=== PATIENT | female | born 1985 | race Caucasian/White ===

== ENCOUNTER 2016-10-07 12:31 | Inpatient (IN) | payer MEDICAID ==
[~2016-10-07] VITALS: Ht 149.9 cm; Wt 60.9 kg
[~2016-10-07 12:31] MED LIST: PREN1TAB17 PO
[2016-10-28 14:09] VITALS: Ht 149.9 cm; Wt 60.9 kg
[2016-10-28] MEDS ORDERED: OXYTOCIN 30 UNITS/LR 500 ML IV SCH ×3 (14:30→15:30)
[2016-10-28] MEDS ORDERED: METHYLERGONOVINE 0.2 MG INJ IM PRN (14:30)
[2016-10-28] MEDS ORDERED: LIDOCAINE 1% (MPF) 30 ML INJ INJ PRN (14:30)
[2016-10-28] MEDS ORDERED: OXYTOCIN 30 UNITS/LR 500 ML IV PRN (14:30)
[2016-10-28] MEDS ORDERED: BUTORPHANOL 2 MG INJ IV PRN (14:30)
[2016-10-28] MEDS ORDERED: IBUPROFEN 600 MG TAB PO PRN (14:30)
[2016-10-28] MEDS ORDERED: CARBOPROST 250 MCG INJ IM PRN (14:30)
[2016-10-28] MEDS ORDERED: LACTATED RINGER'S 1,000 ML IV PRN (14:30)
[2016-10-28] MEDS ORDERED: MISOPROSTOL 200 MCG TAB PR PRN (14:30)
[2016-10-28] MEDS: LACTATED RINGER'S 1,000 ML IV SCH ×2 (14:35→22:12)
[2016-10-28 14:47] LABS: BASOPHILS % 0.4 % (0.0-2.0); EOSINOPHILS % 0.5 % (0.0-7.0); HEMATOCRIT 37.6 % (37.0-47.0); HEMOGLOBIN 12.8 g/dl (12.0-16.0); LYMPHOCYTES # 1.8 10^3/ul (0.8-2.9); LYMPHOCYTES % 21.3 % (15.0-51.0); MEAN CORPUSCULAR HEMOGLOBIN 30.6 pg (29.0-33.0); MEAN CORPUSCULAR HGB CONC 34.1 g/dl (32.0-37.0); MEAN CORPUSCULAR VOLUME 89.7 fl (82.0-101.0); MEAN PLATELET VOLUME 9.3 fl (7.4-10.4); MONOCYTE # 0.8 10^3/ul (0.3-0.9); MONOCYTES % 8.9 % (0.0-11.0); NEUTROPHILS % 68.9 % (39.0-77.0); PLATELET COUNT 252 10^3/UL (140-440); RED BLOOD COUNT 4.19 10^6/ul (4.20-5.40); RED CELL DISTRIBUTION WIDTH 13.7 % (11.5-14.5); UNCORRECTED WBC 8.7 10^3/ul (4.8-10.8); WHITE BLOOD COUNT 8.7 10^3/ul (4.8-10.8)
[2016-10-28 14:48] LABS: CONDITION 1; INR 0.91; PARTIAL THROMBOPLASTIN TIME 25.9 Sec (25.0-35.0); PROTIME 12.2 Sec (12.2-14.2)
[2016-10-28 15:00] VITALS: BP 123/82; PULSE 97; RESP 18
[2016-10-28] MEDS: DEXTROSE 5%-LR 1,000 ML IV SCH (16:44)
--- NOTE | 2016-10-28 17:23 | RADRPT ---
PROCEDURE: US OB biophysical profile. CLINICAL INDICATION: Intrauterine growth retardation TECHNIQUE: Multiple sonographic images of the pelvis were obtained. The images were reviewed on a PACS workstation. COMPARISON: No prior studies are available for comparison. FINDINGS: There is a single viable intrauterine gestation. Cardiac activity is present with 161 beats per min bianca. There is a vertex presentation. The placenta is posterior and fundal. There is no evidence of placental abruption. There is a normal amount of amniotic fluid with an SHADIA = 10.1 cm. Biophysical profile: movement 2/2 tone 2/2. breathing 2/2 SHADIA 2/2 Total 05/05 RPTAT: AA . IMPRESSION: Normal biophysical profile. Normal SHADIA. Physician Wang Date Time Electronically viewed and signed by Physician Wang on 10/28/2016 17:23 /
[2016-10-28] MEDS ORDERED: MINERAL OIL LIGHT 10 ML VIAL TOP ONE (19:00)
[2016-10-29] VITALS (7 sets, daily range): BP systolic 106–119; BP diastolic 64–82; PULSE 55–92; RESP 18–19
[2016-10-29] MEDS: DEXTROSE 5%-LR 1,000 ML IV SCH ×2 (00:12→09:39)
--- NOTE | 2016-10-29 18:27 | HP ---
Date/Time of Note Date/Time of Note DATE: 10/29/16 TIME: 18:24 OB - History Hx of Present Free Text/Dictation admitted for induction of the labor per perinatologist Last Menstrual Period: Jan 23, 2016 Estimated Due Date: Oct 29, 2016 : 2 Para: 1 Care: Good Care Ultrasounds: Normal mid trimester US Obstetrical Complications: Growth Restriction Medical Complications: None Past Family/Social History * Past Medical, Surgical, Family and Obstetric Histories reviewed from chart. Blood Type: A+ Rubella: immune RPR/VDRL: Negative GBS Status: Unknown HBsAG: Negative OB Admission Exam Vital Signs Vital Signs Vital Signs Date Time Temp Pulse Resp B/P Pulse Ox O2 Delivery O2 Flow Rate FiO2 10/29/16 11:49 76 10/28/16 15:00 98.0 18 123/82 Room Air Physical Exam HEENT: WNL Heart: Rhythm Normal Lungs: Clear, Equal Abdomen: WNL Extremities: Normal Reflexes: Normal Cervical Dilatation: 1cm Effacement: 50% Station: -3 Membranes: Intact Heart Rate: 140's Accelerations: Accelerations Present Decelerations: No Decelerations Varibility: Moderate Contractions on Admission: None Last 72 hours Lab Results CBC & BMP 10/28/16 14:25 OB Assessment/Plan Other Assessment: term gestation poor growth Induction Method: per Pitocin Protocol UBALDO HERNANDEZ MD Oct 29, 2016 18:27
--- NOTE | 2016-10-29 18:28 | PN ---
Date/Time of Note Date/Time of Note DATE: 10/29/16 TIME: 18:27 OB Subjective Subjective Subjective NO C/O UCs OB Objective Objective Objective Cx: %80 3cm -2 station OB Assessment/Plan Other Assessment: poor growth at term Induction Method: per Pitocin Protocol UBALDO HERNANDEZ MD Oct 29, 2016 18:28
[2016-10-30] MEDS ORDERED: DIPHENHYDRAMINE 25 MG CAP PO PRN
[2016-10-30] MEDS ORDERED: METHYLERGONOVINE 0.2 MG TAB PO PRN
[2016-10-30] MEDS ORDERED: ACETAMINOPHEN 325 MG TAB PO PRN ×2
[2016-10-30] MEDS ORDERED: morphine 2 MG INJ IV PRN
[2016-10-30] MEDS ORDERED: ONDANSETRON 4 MG INJ IV PRN
[2016-10-30] MEDS ORDERED: METHYLERGONOVINE 0.2 MG INJ IM PRN
[2016-10-30] MEDS ORDERED: LANOLIN 7 GM TUBE TOP PRN
[2016-10-30] MEDS ORDERED: OXYTOCIN 30 UNITS/LR 500 ML IV PRN
[2016-10-30] MEDS ORDERED: CARBOPROST 250 MCG INJ IM PRN
[2016-10-30] MEDS ORDERED: MISOPROSTOL 200 MCG TAB PR PRN
[2016-10-30] MEDS ORDERED: ZOLPIDEM 5 MG TAB PO PRN
[2016-10-30] MEDS ORDERED: WITCH HAZEL/GLYCERIN PAD PR PRN
[2016-10-30] MEDS: SENNA/DOCUSATE NA (8.6MG/50MG) TAB PO SCH ×3 (00:18→21:29)
[2016-10-30] MEDS: LACTATED RINGER'S 1,000 ML IV* SCH ×2 (00:18→21:30)
[2016-10-30 03:45] VITALS: BP 101/66; PULSE 92; RESP 18
[2016-10-30] MEDS: IBUPROFEN 600 MG TAB PO SCH ×5 (05:49→23:25)
[2016-10-30 08:20] VITALS: BP 124/71; PULSE 73; RESP 20
[2016-10-30] MEDS: MULTIVIT/MIN/FOLATE/IRON/PREN TAB PO SCH (09:29)
--- NOTE | 2016-10-30 09:55 | LDN ---
Date/Time of Note Date/Time of Note DATE: 10/30/16 TIME: 09:52 Delivery Summary of a viable infant Placenta Delivered: Spontaneously Meconium: none Perineum intact?: No Perineal laceration: 1 Perineal laceration repair: 1st degree perineal laceration was repaired with 2 0 Chromic Anesthesia type: Local Estimated blood loss: 300 Sponge & Needle done & correct: Yes All needle counts correct: Yes Any foreign bodies felt in the: No Problems: Infant Delivery Information Sex Sex: female Apgars 1 Minute: 7 5 Minute: 9 Suctioning Nose & mouth suctioned at mello: Yes Delee suction performed: No Umbilical Cord Umbilical cord with: 3 Vessels Cord Blood was obtained: Yes Mother & Baby Disposition Disposition Mom & Baby to Maternity; Good: Yes (mother and baby were recovered in good condition ) Mom transferred to: Other (maternity ) Baby to NICU: No UBALDO HERNANDEZ MD Oct 30, 2016 09:55
[2016-10-30] MEDS ORDERED: IBUP-1542 PO (09:57)
--- NOTE | 2016-10-30 09:57 | PD.PPDC ---
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
[2016-10-30 10:34] LABS: BASOPHILS % 0.4 % (0.0-2.0); EOSINOPHILS # 0.1 10^3/ul (0.0-0.5); EOSINOPHILS % 0.8 % (0.0-7.0); HEMATOCRIT 34.7 % (37.0-47.0); HEMOGLOBIN 11.8 g/dl (12.0-16.0); LYMPHOCYTES # 2.3 10^3/ul (0.8-2.9); LYMPHOCYTES % 17.4 % (15.0-51.0); MEAN PLATELET VOLUME 9.7 fl (7.4-10.4); MONOCYTE # 1.2 10^3/ul (0.3-0.9); MONOCYTES % 9.1 % (0.0-11.0); NEUTROPHIL # 9.4 10^3/ul (1.6-7.5); NEUTROPHILS % 72.3 % (39.0-77.0); PLATELET COUNT 231 10^3/UL (140-440); RED BLOOD COUNT 3.81 10^6/ul (4.20-5.40)
[2016-10-30 10:43] LABS: CONDITION 1
[2016-10-30 16:29] VITALS: BP 113/61; PULSE 69; RESP 20
[2016-10-30 19:30] VITALS: BP 111/62; PULSE 71; RESP 18
[2016-10-31 03:40] VITALS: BP 114/70; PULSE 72; RESP 19
[2016-10-31] MEDS: IBUPROFEN 600 MG TAB PO SCH ×3 (05:47→17:18)
[2016-10-31 08:24] VITALS: BP 120/76; PULSE 81; RESP 20
[2016-10-31] MEDS ORDERED: DIPHTH/TET/ACEL PERTUSS (ADULT) 0.5 ML VIAL IM* ONE (09:00)
[2016-10-31] MEDS ORDERED: VARICELLA VACCINE LIVE/PF 1,350 UNIT/0.5 ML ML SC* ONE (09:00)
[2016-10-31] MEDS ORDERED: MEASLES,MUMPS,RUBELLA VACCINE INJ SC* ONE (09:00)
[2016-10-31] MEDS: SENNA/DOCUSATE NA (8.6MG/50MG) TAB PO SCH (10:12)
[2016-10-31] MEDS: MULTIVIT/MIN/FOLATE/IRON/PREN TAB PO SCH (10:12)
--- NOTE | 2016-10-31 15:11 | PN ---
Date/Time of Note Date/Time of Note DATE: 10/31/16 TIME: 15:07 Assessment/Plan VTE Prophylaxis VTE Prophylaxis Intervention: ambulation Lines/Catheters IV Catheter Type (from Nrsg): Peripheral IV Assessment/Plan Assessment/Plan S/P C/S POD # 3 febrile morbidity on IV and PO Abs will await Cx results : WBC has come down however still has slight left shift Subjective 24 Hr Interval Summary Had BM Exam/Review of Systems Vital Signs Vitals Vital Signs Date Time Temp Pulse Resp B/P Pulse Ox O2 Delivery O2 Flow Rate FiO2 10/31/16 08:24 98.1 81 20 120/76 Room Air Exam Free Text/Dictation Afebrile had T> 101 last PM incision : healing well Constitutional: alert, oriented, well developed Psych: nl mood/affect, no complaints Head: atraumatic, normocephalic Eyes: EOMI, nl conjunctiva, nl lids, nl sclera ENMT: mucosa pink and moist, nl external ears & nose, nl lips & teeth, nl nasal mucosa & septum Neck: non-tender, supple Respiratory: clear to auscultation, normal air movement Cardiovascular: nl pulses, regular rate and rhythm Gastrointestinal: nl liver, spleen, non-tender, soft Genitourinary - Female: uterus (firm ) Musculoskeletal: nl extremities to inspection, nl gait and stance Extremities: normal pulses Neurological: PEDIATRIC PHYSICAL THERAPIST II-XII intact, nl mental status, nl speech, nl strength Skin: nl turgor, rash or lesions Lymph: nl lymph nodes Results Result Diagram: 10/30/16 0941 UBALDO HERNANDEZ MD Oct 31, 2016 15:11
[2016-10-31 16:56] VITALS: BP 122/89; PULSE 59; RESP 20
== END 2016-10-31 18:00 | disposition home or self-care (01) | DRG 775 ==
LOC: OBT 12:31 → L-D 10-28 13:51 → EDSTATUS 10-29 13:50 → PP1 10-29 22:39
PROVIDERS: ADMIT Obstetrics & Gynecology; ATTEND Obstetrics & Gynecology
PROC: 10E0XZZ Delivery of Products of Conception, External Approach (ICD-10-PCS; principal; 2016-10-30)
PROC: 0HQ9XZZ Repair Perineum Skin, External Approach (ICD-10-PCS; 2016-10-30)
PROC: 3E033VJ Introduction of Other Hormone into Peripheral Vein, Percutaneous Approach (ICD-10-PCS; 2016-10-30)
DX: O36.5930 Maternal care for other known or suspected poor fetal growth, third trimester, not applicable or unspecified (principal); Z37.0 Single live birth; Z3A.39 39 weeks gestation of pregnancy
CPT/HCPCS: 76818; 85025; 85610; 85730; 86592; 86900; 86901; 90715; 90716; J2590; J7120; J7121